=== PATIENT | male | born 1980 | race Caucasian/White ===

== ENCOUNTER 2018-05-14 14:06 | Emergency (ER) | payer OTHER ==
--- NOTE | 2018-05-14 14:43 | EDPHY ---
H & P Stated Complaint: Dizzy/SOB/chest tight x1wk, worse today, prod cough-brown Time Seen by Provider: 05/14/18 14:43 - Personal History Current Tetanus/Diphtheria Vaccine: No - Medical/Surgical History Hx Asthma: Yes Hx Chronic Respiratory Disease: No Hx Diabetes: No Hx Cardiac Disease: No Hx Renal Disease: No Hx Cirrhosis: No Hx Alcoholism: No Hx HIV/AIDS: No Hx Splenectomy or Spleen Trauma: No Other PMH: none - Social History Smoking Status: Heavy smoker Constitutional: Initial Vital Signs Temperature (C) 37.3 C 05/14/18 14:26 Heart Rate 97 05/14/18 14:26 Respiratory Rate 18 05/14/18 14:26 Blood Pressure 174/98 H 05/14/18 14:26 O2 Sat (%) 93 05/14/18 14:26 O2 Delivery Mode Room Air Allergies/Adverse Reactions: Penicillins Allergy (Verified 05/14/18 14:26) Home Medications: Medication Instructions Recorded NO HOME MEDICATIONS 02/13/11 oxyCODONE/APAP 5/325 [Percocet] 1 - 2 tab PO Q4-6PRN PRN #17 tab 02/13/11 Albuterol [Proventil Inhaler] 1 - 2 puffs IH Q4 #1 mdi 05/14/18 Azithromycin [Zithromax] 250 mg PO DAILY #6 tab 05/14/18 methylPREDNISolone [Medrol Dose 1 each PO AD #1 ea 05/14/18 [facility]] Medical Decision Making - Diagnostics Imaging Results: Imaging Impressions Chest X-Ray 05/14/18 14:52 Impression: Mild central bronchitis; otherwise negative. Imaging: Discussed imaging studies w/ agent contract clerk Radiologist, I viewed and interpreted images myself ED Course/Re-evaluation: CHIEF COMPLAINT: Sore throat, chest pain, shortness of breath HISTORY OF PRESENT ILLNESS: The patient is a 37 y/o male complaining of a sore throat, cough, and headache onset 1 week ago. The patient initially developed a sore throat and found it difficult to swallow. He then developed minor chest pain with shortness of breath. Three days ago he developed a cough in the morning associated with brown sputum. He did have night sweats for one night but does not have body aches or fever. Currently he also has a headache and feels mildly dizzy. Due to these symptoms he became concerned and decided to present to the emergency department. He denies receiving an influenza vaccination this year. No fever, lightheadedness, heart palpitations, abdominal pain, urinary or bowel complaints , numbness, paresthesias. REVIEW OF SYSTEMS: A comprehensive 10 system review of systems is otherwise negative aside from elements mentioned in the history of present illness and medical decision making. PHYSICAL EXAM: HR, BP, O2 Sat, RR. Temp noted General Appearance: Alert, well hydrated, appropriate, and non-toxic appearing. Head: Atraumatic without scalp tenderness or obvious injury Eyes: Pupils equal, round, reactive to light and accommodation, EOMI, no trauma , no injection. Ears: Clear bilaterally, no perforation, normal landmarks Nose: Atraumatic, no rhinorrhea, clear. Throat: Oropharyngeal erythema with bilateral tonsillar exudates that are worse on the right. No lesions, normal tonsils, mucus membranes moist. Neck: Supple, 2+ carotid upstroke, nontender, no lymphadenopathy. Respiratory: Bilateral coarse rhonchi in all ryan with end expiratory wheezes. No retractions, no distress, and no accessory muscle use. Cardiovascular: Regular rate and rhythm, no murmurs, rubs, or gallops. Bilateral carotid, radial, dorsalis pedis, and posterior tibial pulses intact. Good capillary refill all extremities. Gastrointestinal: Abdomen is soft, nontender, non-distended, no masses, no rebound, no guarding, no peritoneal signs. Musculoskeletal: Normal active ROM of all extremities, atraumatic. Neurological: Alert, appropriate, and interactive. The patient has normal DTRs and non-focal cranial nerves, motor, sensory, and cerebellar exam. Skin: No rashes, good turgor, no nodules on palpation. Past medical history: Denies Past surgical history: Denies Family history: Denies Social history: Family at bedside, employed, smoker DIAGNOSTICS/PROCEDURES/CRITICAL CARE TIME: Chest x-ray: Mild central bronchitis DIFFERENTIAL DIAGNOSIS: The differential diagnosis for the patient's shortness of breath and hypoxemia included but was not limited to bronchitis, pneumonia, myocardial infarction, acute mountain sickness, high altitude pulmonary edema, congestive heart failure , and pulmonary embolus. MEDICAL DECISION MAKING: The patient is a 37 y/o male presenting with a sore throat, cough, and headache onset 1 week ago. On exam the patient has oropharyngeal erythema with bilateral tonsillar exudates that are worse on the right. He also has bilateral coarse rhonchi in all ryan with end expiratory wheezes. I suspect the patient has a bronchitis or strep viral infection and is not having a cardiac event. Chest x- ray ordered; DuoNeb administered. 1520: I spoke with Dr. Downs and Dr. Powell, radiologists, regarding patient's chest x-ray. There is a mild central bronchitis. 1521: Reassessed patient and discussed imaging studies. He feels mildly better after the DuoNeb. I have prescribed him a Z-pack, Medrol dose pack, and albuterol inhaler for his bronchitis. I have also discussed with the patient how his symptoms reveal a low likelihood of a cardiac event. Return precautions provided; patient is comfortable with this plan. - Data Points Medications Given: Discontinued Medications Albuterol/Ipratropium (Duoneb) 3 ml IH EDNOW ONE Stop: 05/14/18 14:52 Last Admin: 05/14/18 14:57 Dose: 3 ml Departure - Departure Disposition: Home, Routine, Self-Care Clinical Impression: Acute bronchitis Qualifiers: Bronchitis organism: other organism Qualified Code(s): J20.8 - Acute bronchitis due to other specified organisms Condition: Good Instructions: Acute Bronchitis (ED) Additional Instructions: 1. Take the Z-pack as directed. 2. Take the Medrol dose pack as prescribed. 3. Use the inhaler as prescribed. 4. Follow-up with your primary doctor within 72 hours. 5. Return to the Emergency Department for fever, chest pain, shortness of breath , increasing pain or other worsening of condition. Referrals: [facility],. [Clinic] - As per Instructions Nick Walton DO [Medical Doctor] - As per Instructions Prescriptions: Albuterol [Proventil Inhaler] 1 - 2 puffs IH Q4 #1 mdi Azithromycin [Zithromax] 250 mg PO DAILY #6 tab methylPREDNISolone [Medrol Dose [facility]] 1 each PO AD #1 ea Report Scribed for: Rolando Walker Report Scribed by: Amanda Pina Date of Report: 05/14/18 Time of Report: 14:45
[2018-05-14] MEDS ORDERED: IPRATROPIUM/ALBUTEROL 3 ML DEYVIAL IH ONE (14:51)
[2018-05-14 15:33] VITALS: BP 165/90
== END 2018-05-14 15:30 | disposition home or self-care (01) ==
DX: J20.8 Acute bronchitis due to other specified organisms (principal); F17.200 Nicotine dependence, unspecified, uncomplicated